=== PATIENT | male | born 1995 | race Caucasian/White ===

== ENCOUNTER 2017-10-05 19:28 | Emergency (ER) | payer SELFPAY ==
--- NOTE | 2017-10-05 20:27 | RADIOLOGY REPORT (SQ) ---
EXAM DESCRIPTION: ANKLE LEFT COMPLETE COMPLETED DATE/TIME: 10/05/2017 8:02 pm REASON FOR STUDY: pain s/p injury COMPARISON: None. NUMBER OF VIEWS: Three views. TECHNIQUE: AP, lateral, and oblique radiographic images acquired of the left ankle. LIMITATIONS: None. FINDINGS: MINERALIZATION: Normal. BONES: No acute fracture or dislocation. No worrisome bone lesions. JOINTS: No effusions. SOFT TISSUES: No soft tissue swelling. No foreign body. OTHER: No other significant finding. IMPRESSION: NEGATIVE STUDY OF THE LEFT ANKLE. NO RADIOGRAPHIC EVIDENCE OF ACUTE INJURY. TECHNICAL DOCUMENTATION: JOB ID: [id number] [employer]- All Rights Reserved Reading location - IP/workstation name: [email or web address]
--- NOTE | 2017-10-05 21:14 | ER Document Report ---
ED Extremity Problem, Lower - General Mode of Arrival: Ambulatory Information source: Patient TRAVEL OUTSIDE OF THE [place] IN LAST 30 DAYS: No - General Chief Complaint: Ankle Injury Stated Complaint: LEFT ANKLE INJURY Time Seen by Provider: 10/05/17 21:04 Notes: Patient is a 22 year old male with no significant medical history presents to the emergency department complaining of left foot swelling and pain. Patient states he jumped a fence 2 days while at work and landed on his foot hard and "wrong". Patient states his swelling was onset today and his pain progressed. (JUAN GILMORE) - Related Data Allergies/Adverse Reactions: No Known Allergies Allergy (Unverified 10/05/17 19:31) Past Medical History - General Information source: Patient - Social History Smoking Status: Unknown if Ever Smoked Family History: Reviewed & Not Pertinent Review of Systems - Review of Systems Constitutional: No symptoms reported EENT: No symptoms reported Cardiovascular: No symptoms reported Respiratory: No symptoms reported Gastrointestinal: No symptoms reported Genitourinary: No symptoms reported Male Genitourinary: No symptoms reported Musculoskeletal: See HPI Skin: No symptoms reported Hematologic/Lymphatic: No symptoms reported Neurological/Psychological: No symptoms reported -: Yes All other systems reviewed and negative Physical Exam - Vital signs Vitals: Temp Pulse Resp BP Pulse Ox 97.7 F 60 17 129/82 H 100 10/05/17 19:47 10/05/17 19:47 10/05/17 19:47 10/05/17 19:47 10/05/17 19:47 - Notes Notes: GENERAL: Alert, interacts well. No acute distress. HEAD: Normocephalic, atraumatic. EYES: Pupils equal, round, and reactive to light. Extraocular movements intact. ENT: Oral mucosa moist, tongue midline. NECK: Full range of motion. Supple. Trachea midline. LUNGS: Clear to auscultation bilaterally, no wheezes, rales, or rhonchi. No respiratory distress. HEART: Regular rate and rhythm. No murmurs, gallops, or rubs. EXTREMITIES: Moves all 4 extremities spontaneously. 2+ pitting edema to left foot, swelling at the left medial malleolus and base of fifth metatarsal. Able to bear weight. NEUROLOGICAL: Alert and oriented x3. Normal speech. PSYCH: Normal affect, normal mood. SKIN: Warm, dry, normal turgor. No rashes or lesions noted. (JUAN GILMORE) Course - Re-evaluation Re-evalutation: 10/05/17 22:12 No radiologic evidence for fracture. Discussed findings with patient and need to use anti-inflammatories for the next 5 days and then twice a day thereafter as needed. I did discuss if symptoms are not improving at the next 10-14 days to have reimaging his hairline fractures cannot be identified on initial radiographs. (JEMMA HAMM) - Vital Signs Vital signs: Temp Pulse Resp BP Pulse Ox 98.1 F 72 18 128/76 H 100 10/05/17 22:29 10/05/17 22:29 10/05/17 22:29 10/05/17 22:29 10/05/17 22:29 Discharge - Discharge Clinical Impression: Ankle sprain Qualifiers: Encounter type: initial encounter Involved ligament of ankle: other ligament Laterality: left Qualified Code(s): S93.492A - Sprain of other ligament of left ankle, initial encounter Condition: Stable Disposition: HOME, SELF-CARE Additional Instructions: Please use anti-inflammatories as prescribed and if symptoms are not improving the next 10-14 days please follow-up for reimaging as initial radiographs cannot show any hairline fractures although your signs and symptoms to be related to ankle sprain Prescriptions: Naproxen 500 mg PO ASDIR PRN #30 tablet PRN Reason: Scribe Attestation: 10/05/17 23:41 I personally performed the services described documentation, reviewed and edited the documentation which was dictated to describe my presence, and it accurately records my words and actions. (JEMMA HAMM) Scribe Documentation - Scribe Written by Darionibastrid:: Juan Gilmore, Jackie, 10/05/2017 21:17 acting as scribe for :: Izaiah
--- NOTE | 2017-10-05 21:40 | RADIOLOGY REPORT (SQ) ---
EXAM DESCRIPTION: FOOT LEFT COMPLETE COMPLETED DATE/TIME: 10/05/2017 9:26 pm REASON FOR STUDY: swelling at base of 5th metatarsal COMPARISON: None. NUMBER OF VIEWS: Three views. TECHNIQUE: AP, lateral and oblique radiographic images acquired of the left foot. LIMITATIONS: None. FINDINGS: MINERALIZATION: Normal. BONES: No acute fracture or dislocation. No worrisome bone lesions. JOINTS: No effusions. SOFT TISSUES: No soft tissue swelling. No foreign body. OTHER: No other significant finding. IMPRESSION: NEGATIVE STUDY OF THE LEFT FOOT. NO RADIOGRAPHIC EVIDENCE OF ACUTE INJURY. TECHNICAL DOCUMENTATION: JOB ID: [id number] [email or web address]- All Rights Reserved Reading location - IP/workstation name: [email or web address]
[2017-10-05] MEDS ORDERED: KETOROLAC TROMETHAMINE 60 MG/2 ML SDV IM ONE (22:16)
[2017-10-05 22:29] VITALS: BP 128/76
== END 2017-10-05 22:22 | disposition home or self-care (01) ==
LOC: ER 19:28
DX: S93.402A Sprain of unspecified ligament of left ankle, initial encounter (principal); X58.XXXA Exposure to other specified factors, initial encounter; Y93.39 Activity, other involving climbing, rappelling and jumping off; Y99.0 Civilian activity done for income or pay
CPT/HCPCS: 99283

== ENCOUNTER 2017-11-11 06:53 | Emergency (ER) | payer SELFPAY ==
--- NOTE | 2017-11-11 07:25 | ER Document Report ---
ED General - General Chief Complaint: Productive Cough Stated Complaint: EYE IRRITATION,COUGHING UP BLOOD Time Seen by Provider: 11/11/17 07:16 Mode of Arrival: Ambulatory Information source: Patient TRAVEL OUTSIDE OF THE [place] IN LAST 30 DAYS: No - HPI Notes: 22-year-old male with a past medical history of congenital kidney disease presents today to the emergency room for complaints of fevers and chills, productive cough, states he was coughing up blood today, reports right eye drainage that started today as well. States he took ibuprofen without relief. Worse with time, nothing makes better. Poked smokes a pack a day for the last 6 years. Denies any clotting disorders. Denies any recent travel, surgeries, immobilization, calf pain. not drinking or eating as much. No other sick contacts. Did not get the flu shot this year. Patient states he has a past medical history of IV drug abuse, states he went to drug treatment for 11 months and has been clean for the last 2 years. Denies any recent IV drug and use denies chest pain,palpitations, dyspnea, nausea, vomiting, diarrhea, abdominal pain, hematuria,blurred vision, double vision, loss of vision, speech changes, LH, dizziness, syncope, headaches, ST, URI, neck pain, weakness, bowel or bladder dysfunction, saddle anesthesia, numbness or tingling in bilateral upper or lower extremities equally, muscle paralysis, weakness in bilateral upper or lower extremities equally or rash. - Related Data Allergies/Adverse Reactions: No Known Allergies Allergy (Unverified 10/05/17 19:31) Past Medical History - General Information source: Patient - Social History Smoking Status: Current Every Day Smoker Family History: Reviewed & Not Pertinent Renal/ Medical History: Denies: Hx Peritoneal Dialysis Review of Systems - Review of Systems Notes: REVIEW OF SYSTEMS: CONSTITUTIONAL : + fever, chills. sweats. Denies recent illness. EENT: +eye drainage. ear, throat, or mouth pain or symptoms. Denies nasal or sinus congestion or discharge. Denies throat, tongue, or mouth swelling or difficulty swallowing. CARDIOVASCULAR: Denies chest pain. Denies palpitations or racing or irregular heart beat. Denies ankle edema. RESPIRATORY: + cough, cold, or chest congestion. + shortness of breath, difficulty breathing, or wheezing. GASTROINTESTINAL: Denies abdominal pain or distention. Denies nausea, vomiting , or diarrhea. Denies blood in vomitus, stools, or per rectum. Denies black, tarry stools. Denies constipation. GENITOURINARY: Denies difficulty urinating, painful urination, burning, frequency, blood in urine, or discharge. MUSCULOSKELETAL: Denies back or neck pain or stiffness. Denies joint pain or swelling. SKIN: Denies rash, lesions or sores. HEMATOLOGIC : Denies easy bruising or bleeding. LYMPHATIC: Denies swollen, enlarged glands. NEUROLOGICAL: Denies confusion or altered mental status. Denies passing out or loss of consciousness. Denies dizziness or lightheadedness. Denies headache. Denies weakness or paralysis or loss of use of either side. Denies problems with gait or speech. Denies sensory loss, numbness, or tingling. Denies seizures. PSYCHIATRIC: Denies anxiety or stress. Denies depression, suicidal ideation, or homicidal ideation. ALL OTHER SYSTEMS REVIEWED AND NEGATIVE. Dictation was performed using [employer] voice recognition software PHYSICAL EXAMINATION: GENERAL: Well-appearing, well-nourished and in no acute distress. HEAD: Atraumatic, normocephalic. EYES: Pupils equal round and reactive to light, extraocular movements intact, sclera anicteric, conjunctiva are normal. ENT: Nares patent, oropharynx clear without exudates. Moist mucous membranes. NECK: Normal range of motion, supple without lymphadenopathy LUNGS: Breath sounds with diffuse wheezing, absent breath sounds in right lower lobe. HEART: Sinus Tachycardiaand rhythm without murmurs ABDOMEN: Soft, nontender, nondistended abdomen. No guarding, no rebound. No masses appreciated. Musculoskeletal: Normal range of motion, no pitting or edema. No cyanosis. NEUROLOGICAL: Cranial nerves grossly intact. Normal speech, normal gait. Normal sensory, motor exams PSYCH: Normal mood, normal affect. SKIN: Warm, Dry, normal turgor, no rashes or lesions noted. Physical Exam - Vital signs Vitals: Temp Pulse Resp BP Pulse Ox 97.9 F 107 H 18 120/75 97 11/11/17 06:59 11/11/17 06:59 11/11/17 06:59 11/11/17 06:59 11/11/17 06:59 Course - Re-evaluation Re-evalutation: Dr. Henry, radiologist, contact me to tell me that patient does have a blood in his left lower lobe, she cannot exclude the beginnings of a pneumothorax. After performing a Medical Screening Examination, I spoke with the patient at length in regards to leaving the hospital against medical advice. I do not believe the patient should leave but the patient is alert oriented x4, understands the risks and benefits of staying and leaving including disability and . patient is afebrile, remains tachycardic, diffuse wheezing with absent breath sounds in right lower lobe. patient is not under the influence of any substances, alcohol prescriptions that would alter his mental status in his decision to leave. patient is not in any active distress. Pt understands that he can return at any time for further care and is more than welcome to do so. Pt verbalizes this understanding of these instructions of these instructions. Allyson Armendariz RN at bedside as witness. - Vital Signs Vital signs: Temp Pulse Resp BP Pulse Ox 97.9 F 107 H 18 120/75 97 11/11/17 06:59 11/11/17 06:59 11/11/17 06:59 11/11/17 06:59 11/11/17 06:59 - EKG Interpretation by Me EKG shows normal: Sinus rhythm Rate: Normal - rangings from 92bpm to 118bpm on monitor, Tachycardia Rhythm: NSR - No STEMI. Nonspecific ST segment elevation
[2017-11-11] MEDS ORDERED: TETRACAINE HCL 0.5% OPH SOLN 2 ML OD ONE (07:26)
[2017-11-11] MEDS ORDERED: NORMAL SALINE 1000 ML 1,000 ML IV PRN (07:35)
[2017-11-11] MEDS ORDERED: IPRATROPIUM/ALBUTEROL 0.5-2.5 MG/3 ML AMPUL NEB ONE (07:35)
[2017-11-11 08:17] VITALS: BP 145/82
[2017-11-11 08:31] LABS: ABSOLUTE BASOPHILS # (AUTO) 0.1 10^3/uL (0.0-0.2); ABSOLUTE EOSINOPHILS # (AUTO) 0.1 10^3/uL (0.0-0.6); ABSOLUTE LYMPHOCYTES (AUTO) 1.5 10^3/uL (0.5-4.7); ABSOLUTE MONOCYTES (AUTO) 0.6 10^3/uL (0.1-1.4); ABSOLUTE NEUT (AUTO) 3.9 10^3/uL (1.7-8.2); BASOPHILS % (AUTO) 0.9 % (0-2); EOSINOPHILS % (AUTO) 1.2 % (0-6); HEMATOCRIT 46.1 % (37.9-51.0); HEMOGLOBIN 16.1 g/dL (13.5-17.0); LYMPHOCYTES % (AUTO) 25.2 % (13-45); MEAN CORPUSCULAR HEMOGLOBIN 32.5 pg (27.0-33.4); MEAN CORPUSCULAR VOLUME 93 fl (80-97); PLATELET COUNT 179 10^3/uL (150-450); RED BLOOD COUNT 4.96 10^6/uL (4.35-5.55); RED CELL DISTRIBUTION WIDTH 13.2 % (11.5-14.0); SEGMENTED NEUTROPHILS % (AUTO) 63.7 % (42-78); TOTAL CELLS COUNTED % (AUTO) 100 %; WHITE BLOOD COUNT 6.1 10^3/uL (4.0-10.5)
--- NOTE | 2017-11-11 08:37 | RADIOLOGY REPORT (SQ) ---
EXAM DESCRIPTION: CHEST 2 VIEWS COMPLETED DATE/TIME: 11/11/2017 7:55 am REASON FOR STUDY: COUGH COMPARISON: None. EXAM PARAMETERS: NUMBER OF VIEWS: two views TECHNIQUE: Digital Frontal and Lateral radiographic views of the chest acquired. RADIATION DOSE: NA LIMITATIONS: none FINDINGS: LUNGS AND PLEURA: 5 cm lucency along the left lateral lung base. This could represent a s mall bulla or bleb. A tiny loculated pneumothorax could not be excluded. This finding was discussed with Ruth SMALL at 0815 hours, 11/11/2017. Remainder of the lungs are well inflated and clear. No focal infiltrates. No pleural effusion. No pulmonary nodules. MEDIASTINUM AND HILAR STRUCTURES: No masses or contour abnormalities. HEART AND VASCULAR STRUCTURES: Heart normal size. No evidence for failure. BONES: No acute findings. HARDWARE: None in the chest. OTHER: No other significant finding. IMPRESSION: Lucency along the left lateral lung base/lingula. This could be a bulla or bleb. A tin y pocket of pleural space air/tiny loculated pneumothorax could not be excluded. Findings discussed with the emergency room provider as a critical finding as above. COMMENT: Pertinent findings on the imaging study reported as a CRITICAL RESULT to [employer]-C RUTH MOY at08:15 on 11/11/2017. Category of Critical Result: Possible pneumothorax TECHNICAL DOCUMENTATION: JOB ID: [id number] [employer]- All Rights Reserved Reading location - IP/workstation name: [email or web address]
[2017-11-11 08:48] LABS: ALANINE AMINOTRANSFERASE 107 U/L (21-72); ALBUMIN 4.2 g/dL (3.5-5.0); ALKALINE PHOSPHATASE 131 U/L (38-126); ANION GAP 9 (5-19); ASPARTATE AMINO TRANSFERASE 67 U/L (17-59); BILIRUBIN,DIRECT 0.3 mg/dL (0.0-0.4); BILIRUBIN,TOTAL 0.6 mg/dL (0.2-1.3); BLOOD UREA NITROGEN 11 mg/dL (7-20); CALCIUM 9.7 mg/dL (8.4-10.2); CARBON DIOXIDE 29 mmol/L (22-30); CHLORIDE 101 mmol/L (98-107); CREATINE KINASE 80 U/L (55-170); GLUCOSE 125 mg/dL (75-110); INTERNATIONAL RATION (INR) 0.93; POTASSIUM 4.2 mmol/L (3.6-5.0); PROTHROMBIN TIME 13.2 SEC (11.4-15.4); SODIUM 139.1 mmol/L (137-145); TOTAL PROTEIN 7.5 g/dL (6.3-8.2)
[2017-11-11 08:49] LABS: PARTIAL THROMBOPLASTIN TIME 33.5 SEC (23.5-35.8)
[2017-11-11 08:58] LABS: CREATINE KINASE MB 1.77 ng/mL (<4.55); TROPONIN I < 0.012 ng/mL
--- NOTE | 2017-11-11 09:11 | EKG REPORT ---
SEVERITY:- BORDERLINE ECG - SINUS RHYTHM PROBABLE LEFT ATRIAL ABNORMALITY BORDERLINE RIGHT AXIS DEVIATION : Confirmed by: Rob Chou 11-Nov-2017 09:11:01
== END 2017-11-11 08:17 | disposition left against medical advice (07) ==
LOC: ER 06:53
DX: R04.2 Hemoptysis (principal); H10.31 Unspecified acute conjunctivitis, right eye; H66.001 Acute suppurative otitis media without spontaneous rupture of ear drum, right ear; R07.89 Other chest pain; R00.0 Tachycardia, unspecified; F17.200 Nicotine dependence, unspecified, uncomplicated
CPT/HCPCS: 36415; 71046; 80053; 82550; 82553; 84484; 85025; 85610; 85730; 86140; 93005; 93010; 99284

== ENCOUNTER 2017-11-11 17:37 | Emergency (ER) | payer SELFPAY ==
--- NOTE | 2017-11-11 18:23 | ER Document Report ---
ED Medical Screen (RME) - General Chief Complaint: Productive Cough Stated Complaint: COUGH,EYE DRAINAGE Time Seen by Provider: 11/11/17 18:20 Notes: RME DISCLOSURE I have seen this patient as part of a Rapid Medical Evaluation and, if applicable, placed any initially appropriate orders. The patient will be seen and fully evaluated, including a full history and physical exam, by a provider ( in Main ED or Fast Track) when a room becomes available. 22-year-old male seen earlier for a cough and chest pain who then left AGAINST MEDICAL ADVICE is now back for further evaluation. He states he went to work so he did not lose his job but when he went to work, his boss told him it was okay to come back. Per chart review, the chest x-ray findings from earlier today were concerning for possible pneumothorax. EXAM No tracheal deviation Tachycardic rate Bilateral breath sounds TRAVEL OUTSIDE OF THE [place] IN LAST 30 DAYS: No - Related Data Allergies/Adverse Reactions: No Known Allergies Allergy (Verified 11/11/17 17:38) Past Medical History - Social History Chew tobacco use (# tins/day): No Frequency of alcohol use: None Drug Abuse: None Renal/ Medical History: Denies: Hx Peritoneal Dialysis Physical Exam - Vital signs Vitals: Temp Pulse Resp BP Pulse Ox 97.7 F 125 H 20 114/78 97 11/11/17 17:42 11/11/17 17:42 11/11/17 17:42 11/11/17 17:42 11/11/17 17:42 Course - Vital Signs Vital signs: Temp Pulse Resp BP Pulse Ox 97.7 F 125 H 20 114/78 97 11/11/17 17:42 11/11/17 17:42 11/11/17 17:42 11/11/17 17:42 11/11/17 17:42
--- NOTE | 2017-11-11 19:16 | RADIOLOGY REPORT (SQ) ---
EXAM DESCRIPTION: CT CHEST WITHOUT COMPLETED DATE/TIME: 11/11/2017 6:31 pm REASON FOR STUDY: cxr details pneumothorax; eval further COMPARISON: Chest x-ray 11/11/2017 TECHNIQUE: CT scan performed of the chest without intravenous contrast. Images reviewed with lung, soft tissue and bone windows. Reconstructed coronal and sagittal MPR images reviewed. All images st ored on PACS. All CT scanners at this facility use dose modulation, iterative reconstruction, and/or weight based d osing when appropriate to reduce radiation dose to as low as reasonably achievable (ALARA). [facility]: Dose Right [facility]: CareDose [facility]: Dose Right [facility]: Teradose 4D [facility]: Smart Align Technology RADIATION DOSE: CT Rad equipment meets quality standard of care and radiation dose reduction techniq ues were employed. CTDIvol: 5.3 mGy. DLP: 209 mGy-cm. mGy. LIMITATIONS: No technical limitations. FINDINGS: LUNGS AND PLEURA: There is a small area of linear atelectasis in the left lung. There is no pneumothorax. No pulmonary infiltrate or effusion is present. HILAR AND MEDIASTINAL STRUCTURES: No identified masses or abnormal nodes. No obvious aneurysm. HEART AND VASCULAR STRUCTURES: No aneurysm. No pericardial effusion. UPPER ABDOMEN: No significant findings. Limited exam. THYROID AND OTHER SOFT TISSUES: No masses. No adenopathy. BONES: No significant finding. HARDWARE: None in the chest. OTHER: No other significant findings. IMPRESSION: NO SIGNIFICANT FINDING ON NON-CONTRASTED CHEST CT. TECHNICAL DOCUMENTATION: JOB ID: [id number] Quality ID # [id number]: Final reports with documentation of one or more dose reduction techniques (e.g., Au tomated exposure control, adjustment of the mA and/or kV according to patient size, use of iterative reconstruction technique) 2010 [employer]- All Rights Reserved Reading location - IP/workstation name: [email or web address]
[2017-11-11] MEDS ORDERED: POLYMYXIN B SULFATE/TMP OPH SOLN 10 ML OD ONE (20:14)
[2017-11-11] MEDS ORDERED: BENZONATATE 100 MG CAPSULE PO ONE (20:14)
[2017-11-11] MEDS ORDERED: AZITHROMYCIN 250 MG TABLET PO ONE (20:14)
[2017-11-11] MEDS ORDERED: PREDNISONE 20 MG TABLET PO ONE (20:14)
--- NOTE | 2017-11-11 20:39 | ER Document Report ---
ED General - General Chief Complaint: Productive Cough Stated Complaint: COUGH,EYE DRAINAGE Time Seen by Provider: 11/11/17 18:20 Notes: Patient is a 22-year-old male that comes emergency department for chief complaint of cough, productive cough with blood-tinged sputum, right eye irritation with some crusting and some discolored discharge, and right ear pain. He states he started getting sick just over 2 days ago. He denies fever. He reports pain in his chest with cough. Patient states that he was seen earlier today, had a chest x-ray which was concerning for possible pneumothorax, states he had to go to work but then his boss told him it was fine to come back, already had a CAT scan of the chest without contrast performed in triage. Patient smokes, has a history of congenital kidney disease , drinks heavily, has a history of IV drug abuse, denies injecting anything for the past 2 years. Significant other at bedside. TRAVEL OUTSIDE OF THE [place] IN LAST 30 DAYS: No - Related Data Allergies/Adverse Reactions: No Known Allergies Allergy (Verified 11/11/17 17:38) Past Medical History - General Information source: Patient - Social History Smoking Status: Current Every Day Smoker Chew tobacco use (# tins/day): No Smoking Education Provided: Yes - < 3 min Frequency of alcohol use: None Drug Abuse: None Family History: Reviewed & Not Pertinent Patient has suicidal ideation: No Patient has homicidal ideation: No Renal/ Medical History: Denies: Hx Peritoneal Dialysis Surgical Hx: Negative Review of Systems - Review of Systems Constitutional: See HPI EENT: See HPI Cardiovascular: See HPI Respiratory: See HPI Gastrointestinal: No symptoms reported Genitourinary: No symptoms reported Male Genitourinary: No symptoms reported Musculoskeletal: No symptoms reported Skin: No symptoms reported Hematologic/Lymphatic: No symptoms reported Neurological/Psychological: No symptoms reported Physical Exam - Vital signs Vitals: Temp Pulse Resp BP Pulse Ox 97.7 F 125 H 20 114/78 97 11/11/17 17:42 11/11/17 17:42 11/11/17 17:42 11/11/17 17:42 11/11/17 17:42 Interpretation: Normal - General General appearance: Appears well In distress: None - HEENT Head: Normocephalic, Atraumatic Eyes: Normal Conjunctiva: Injected - Injected right sclera, normal pupils, normal EOMs, normal anterior chamber, normal eye exam otherwise Eyelashes: Normal Pupils: PERRL Ears: Normal External canal: Normal Tympanic membrane: Other - Scarring noted over both tympanic membranes, right side with bulging and erythematous tympanic membrane, no perforation noted, unremarkable ear exam otherwise Sinus: Normal. No: Mastoid Nasal: Normal Mouth/Lips: Normal Mucous membranes: Normal Pharynx: Normal Neck: Normal. No: Meningismus - Respiratory Respiratory status: No respiratory distress. No: Respiratory distress, Labored , Tachypnea Chest status: Nontender Breath sounds: Nonproductive cough, Other - A few scattered coarse breath sounds , no wheezing, rhonchi, rales Chest palpation: Normal - Cardiovascular Rhythm: Regular. No: Tachycardia - No tachycardia on my exam Heart sounds: Normal auscultation, S1 appreciated, S2 appreciated Murmur: No Normal capillary refill: Yes - Abdominal Inspection: Normal Distension: No distension Bowel sounds: Normal Tenderness: Nontender. No: Tender, Guarding Organomegaly: No organomegaly - Back Back: Normal, Nontender - Extremities General upper extremity: Normal inspection, Nontender, Normal color, Normal ROM , Normal temperature General lower extremity: Normal inspection, Nontender, Normal color, Normal ROM , Normal temperature, Normal weight bearing. No: Jay's sign - Neurological Neuro grossly intact: Yes Cognition: Normal Orientation: AAOx4 [place] Coma Scale Eye Opening: Spontaneous [place] Coma Scale Verbal: Oriented Shabana Coma Scale Motor: Obeys Commands [place] Coma Scale Total: 15 Speech: Normal Motor strength normal: LUE, RUE, LLE, RLE Sensory: Normal - Psychological Associated symptoms: Normal affect, Normal mood - Skin Skin Temperature: Warm Skin Moisture: Dry Skin Color: Normal Course - Re-evaluation Re-evalutation: Patient tachycardic initially per vital signs, not tachycardic on my exam, non- toxic in appearance, has congested cough with coarse breath sounds, no overt wheezing, no tachypnea, no respiratory distress. No hypoxia. CAT scan of the chest showing no pneumothorax, no pneumonia, no acute process. This was done without contrast from triage. Discussed with patient. Patient does have conjunctivitis, otitis media, and productive cough, he will be treated accordingly, however I did also discuss a CTA because of his symptoms and tachycardia. Patient states that he has not injected IV drugs for over 2 years, he has not had fever, he declines this evaluation. Because of denial of IV drugs, lack of fever, lack of hypoxia, resolved tachycardia without medication, this does seem like a reasonable course. I do have low suspicion of septic pulmonary emboli, PE. Discussed treatment, follow-up, return precautions in detail. Patient states understanding and agreement. Significant other states understanding and agreement. - Vital Signs Vital signs: Temp Pulse Resp BP Pulse Ox 97.9 F 80 22 H 116/68 98 11/11/17 21:00 11/11/17 21:00 11/11/17 21:00 11/11/17 21:00 11/11/17 21:00 Discharge - Discharge Clinical Impression: Productive cough Conjunctivitis Qualifiers: Conjunctivitis type: acute Acute conjunctivitis type: unspecified Laterality: right Qualified Code(s): H10.31 - Unspecified acute conjunctivitis, right eye Otitis media Qualifiers: Otitis media type: suppurative Chronicity: acute Laterality: right Recurrence: not specified as recurrent Spontaneous tympanic membrane rupture: without spontaneous rupture Qualified Code(s): H66.001 - Acute suppurative otitis media without spontaneous rupture of ear drum, right ear Condition: Stable Disposition: HOME, SELF-CARE Additional Instructions: Your CAT scan does not show any pneumothorax or pneumonia. Your examination shows pinkeye, ear infection, and likely bronchitis. Take the antibiotic as prescribed, take the prednisone as prescribed for wheezing and cough, take the Tessalon for cough if needed. Stop smoking. Take the eyedrops, 1 drop in both eyes 4 times a day for the next 5-7 days. Return for any concerning or worsening symptoms including fever, difficulty breathing, passing out, or any other concerning or worsening symptoms. Prescriptions: Benzonatate [Tessalon Perles 100 mg Capsule] 100 mg PO Q8HP PRN #40 capsule PRN Reason: Azithromycin [Zithromax 250 mg Tablet] 250 mg PO ASDIR PRN #4 tablet PRN Reason: Prednisone 60 mg PO DAILY #15 tablet Forms: Return to Work
[2017-11-11 21:02] VITALS: BP 116/68
== END 2017-11-11 21:20 | disposition home or self-care (01) ==
LOC: ER 17:37
DX: R04.2 Hemoptysis (principal); H10.31 Unspecified acute conjunctivitis, right eye; H66.001 Acute suppurative otitis media without spontaneous rupture of ear drum, right ear; R07.89 Other chest pain; F17.200 Nicotine dependence, unspecified, uncomplicated
CPT/HCPCS: 99283; 71250; J3490; J7512